=== PATIENT | female | born 1975 | race Caucasian/White ===

== ENCOUNTER 2022-07-17 13:58 | Inpatient (IN) | payer MEDICAID, SELFPAY ==
[2022-07-17 13:58] VITALS: BMI 28.2
[2022-07-17 14:00] VITALS: BP 142/97; PULSE 104; RESP 20; TEMP 36.9; O2SAT 98
--- NOTE | 2022-07-17 16:32 | PC.NURSE ---
BROTHER CALLED TO GIVE COLLABORATIVE INFO, STATES SHE HASN'T BEEN TAKING HER MEDICATIONS, REFUSING TOO, STATES SHE IS AGORAPHOBIC, SO IT HAS BEEN HARD TO GET HER INTO ANY OF HER DOCTOR APPOINTMENTS. LUIZ ALEMAN [phone]
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
[2022-07-17 21:49] VITALS: BP 118/81; PULSE 92; RESP 18; TEMP 36.9; O2SAT 97
[2022-07-17] MEDS: nicotine 4 mg lozenge MUCOUS MEM (22:35)
[2022-07-18] MEDS: nicotine 2 mg Gum BUCCAL ×3 (02:22→19:26)
[2022-07-18 06:00] VITALS: BP 118/79; PULSE 90; RESP 18; TEMP 36.7; O2SAT 98
[2022-07-18] MEDS: nicotine 21 mg Patch 1 PATCH TRANSDERMA (09:29)
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
[2022-07-18 14:00] VITALS: BP 130/81; PULSE 92; RESP 18; TEMP 36.7; O2SAT 98
[2022-07-18] MEDS: ARIPiprazole 10 mg Tablet PO (18:36)
[2022-07-18 20:30] VITALS: BP 137/80; PULSE 94; RESP 18; TEMP 36.7; O2SAT 98
[2022-07-19] MEDS: nicotine 2 mg Gum BUCCAL ×3 (02:42→21:41)
--- NOTE | 2022-07-19 05:28 | PC.NURSE ---
pt has been cooperative this shift, and requested a room change earlier as her roommate was yelling and pt was unable to get sleep. unit able to accommodate request.
[2022-07-19 06:00] VITALS: BP 138/83; PULSE 93; RESP 20; TEMP 36.6; O2SAT 97
[2022-07-19] MEDS: ARIPiprazole 10 mg Tablet PO (09:19)
[2022-07-19] MEDS: nicotine 21 mg Patch 1 PATCH TRANSDERMA (09:19)
[2022-07-19 14:00] VITALS: BP 123/82; PULSE 90; RESP 16; TEMP 36.8; O2SAT 99
--- NOTE | 2022-07-19 17:42 | W.PM.NPUPNS ---
Subjective NPU Subjective: Patient presented today reporting that she was feeling a little better. She feels like the Abilify has helped some. We discussed continuing with this medication and considering additional medication either here or after discharge. She is hoping that she does not have to stay too long but does identify that she understands why she is on a hold. We discussed that we would use the next day or so to determine whether there was going to be in need for a 21-day hold. Mental Status Exam MSE Comments: This is a an overweight versus obese white female in hospital scrubs with limited grooming and eye contact. No abnormal movements except for lessening psychomotor agitation. Cooperative with exam in mild distress. Speech was slightly increased rate and normal volume and less pressured. Mood described as a little better, affect is manic. Thought process, organized. Thought content: patient denies suicidal or homicidal ideation, no delusions reported or noted and denies any current auditory or visual hallucinations. Attention and concentration appear intact and memory appeared reliable but none were formally tested. She is alert and oriented times three. Insight and judgment are limited. Impulse control is impaired. Vitals/I&O/Wt Last Vital Signs Temp 98.3 F 07/19/22 14:00 Pulse 90 07/19/22 14:00 Resp 16 07/19/22 14:00 BP 123/82 07/19/22 14:00 Pulse Ox 99 07/19/22 14:00 O2 Del Method 07/19/22 14:00 Weight last 48 hrs Weight 79.379 kg A&P Assessment and plan (1) Bipolar disorder with psychotic features: (2) Parisa: Plan This is a 46 year old woman with a history of trauma, history of bipolar disorder, and genetic loading for mental health and addiction issues who presents reporting some success on Abilify in the past and an openness to restart medications at this time. 1. Continue current medications. Started Abilify 10 mg poq daily. 2. Encourage individual, group and milieu therapy 3. Continue q-15 minute check for safety Involuntary Hold Information 96 Hour Hold: 96 Hour Involuntary Admission: No Attestations NPU Medical Necessity Statement*: Inpatient hospitalization is medically necessary and the clinically appropriate intervention at this time. We will monitor medications and make changes as indicated. Likely length of stay is three to five days. Coding Level of Care Code Acute Code for [facility] Fwd Diagnoses Bipolar disorder with psychotic features F31.9 Parisa F30.9
[2022-07-19 20:57] VITALS: BP 132/83; PULSE 102; RESP 16; TEMP 36.9; O2SAT 96
[2022-07-20] MEDS: nicotine 2 mg Gum BUCCAL ×2 (02:56→21:01)
[2022-07-20 06:00] VITALS: BP 133/78; PULSE 90; RESP 20; TEMP 37; O2SAT 98
[2022-07-20] MEDS: nicotine 21 mg Patch 1 PATCH TRANSDERMA (09:23)
--- NOTE | 2022-07-20 09:28 | PC.NURSE ---
pt request to take medication abilify at HS instead of morning.
--- NOTE | 2022-07-20 13:21 | P.NPUPN_ITS ---
Subjective NPU Subjective: Patient presented today reporting that the Abilify is helping diminish her hyperkinetic internal experience. Staff reports and patient demonstrating continued intrusiveness and inappropriate boundaries consistent with parisa but clear that she is not wanting to stay beyond her 96-hour hold. Sathya eastman discussed the fact that we would evaluate her in the morning and make a decision at that time whether we would be submitting a request for a 21-day hold. We discussed wanting to talk to her about baseline and where her behavior patterns are currently. We switched the Abilify to bedtime as she reports it makes her sleepy but she was resistant to an increased in the dosing. Mental Status Exam MSE Comments: This is a an overweight versus obese white female in hospital scrubs with limited grooming and eye contact. No abnormal movements except for lessening psychomotor agitation. Cooperative with exam in mild distress. Speech was slightly increased rate and normal volume and less pressured. Mood described as a little better, affect is still manic. Thought process, organized. Thought content: patient denies suicidal or homicidal ideation, no delusions reported or noted and denies any current auditory or visual hallucinations. Attention and concentration appear intact and memory appeared reliable but none were formally tested. She is alert and oriented times three. Insight and judgment are limited. Impulse control is impaired. Vitals/I&O/Wt Last Vital Signs Temp 98.6 F 07/20/22 06:00 Pulse 90 07/20/22 06:00 Resp 20 H 07/20/22 06:00 BP 133/78 07/20/22 06:00 Pulse Ox 98 07/20/22 06:00 O2 Del Method 07/19/22 14:00 A&P Assessment and plan (1) Bipolar disorder with psychotic features: (2) Parisa: Plan This is a 46 year old woman with a history of trauma, history of bipolar disorder, and genetic loading for mental health and addiction issues who presents reporting some success on Abilify in the past and an openness to restart medications at this time. 1. Continue current medications. Started Abilify 10 mg poq daily. Change dosing to nightly. We will encourage increasing dose and likely switching to injection if possible. 2. Encourage individual, group and milieu therapy. 3. Continue q-15 minute check for safety. 4. Get collateral information from and will likely submit a 21-day hold request tomorrow. Involuntary Hold Information 96 Hour Hold: 96 Hour Involuntary Admission: No Attestations NPU Medical Necessity Statement*: Inpatient hospitalization is medically necessary and the clinically appropriate intervention at this time. We will monitor medications and make changes as indicated. Likely length of stay is three to five days. Coding Level of Care Code Acute Code for [facility] Diagnoses Bipolar disorder with psychotic features F31.9 Parisa F30.9
[2022-07-20 14:00] VITALS: BP 134/76; PULSE 102; RESP 18; TEMP 36.7; O2SAT 96
[2022-07-20] MEDS: ARIPiprazole 10 mg Tablet PO (21:01)
[2022-07-20 22:00] VITALS: BP 132/85; PULSE 99; RESP 15; TEMP 36.8; O2SAT 98
[2022-07-21 06:00] VITALS: RESP 17
--- NOTE | 2022-07-21 06:35 | PC.NURSE ---
nicorette gum given at bedtime, pt has slept most of the night. Woke up once for a snack and returned to bed.
[2022-07-21] MEDS: nicotine 4 mg lozenge MUCOUS MEM (08:02)
[2022-07-21] MEDS: nicotine 21 mg Patch 1 PATCH TRANSDERMA (09:13)
[2022-07-21 14:00] VITALS: BP 137/86; PULSE 97; RESP 18; TEMP 36.6; O2SAT 97
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
[2022-07-21] MEDS: ARIPiprazole Maintena 400 MG IM (18:34)
[2022-07-21] MEDS: ARIPiprazole 10 mg Tablet PO (20:50)
[2022-07-21] MEDS: nicotine 2 mg Gum BUCCAL (21:30)
[2022-07-21 22:00] VITALS: BP 128/84; PULSE 114; RESP 18; TEMP 36.6; O2SAT 99
[2022-07-22] MEDS: nicotine 2 mg Gum BUCCAL ×2 (03:56→21:24)
[2022-07-22 06:00] VITALS: BP 128/87; PULSE 101; RESP 16; TEMP 36.4; O2SAT 97
[2022-07-22] MEDS: cetirizine 10 mg Tablet PO (08:58)
[2022-07-22] MEDS: nicotine 21 mg Patch 1 PATCH TRANSDERMA (09:00)
--- NOTE | 2022-07-22 13:51 | P.NPUPN_ITS ---
Subjective NPU Subjective: Patient presented today reporting that she is feeling a bit better. She identifies that she feels she can go home sooner than we likely think and reports some of her behaviors are just her quirky style. We discussed making sure that she maintained the medication and noting her being less int rusive on the medication. She denied any issues with the injection site or any other issues. Mental Status Exam MSE Comments: This is a an overweight versus obese white female in hospital scrubs with limited grooming and eye contact. No abnormal movements except for lessening psychomotor agitation. Cooperative with exam in mild distress. Speech was slightly increased rate and normal volume and less pressured. Mood described as better, affect a little less manic. Thought process, organized. Thought c ontent: patient denies suicidal or homicidal ideation, no delusions reported or noted and denies any current auditory or visual hallucinations. Attention and concentration appear intact and memory appeared reliable but none were formally tested. She is alert and oriented times three. Insight and judgment are limited. Impulse control is impaired. Vitals/I&O/Wt Last Vital Signs Temp 97.6 F 07/22/22 06:00 Pulse 101 H 07/22/22 06:00 Resp 16 07/22/22 06:00 BP 128/87 07/22/22 06:00 Pulse Ox 97 07/22/22 06:00 O2 Del Method 07/22/22 06:00 A&P Assessment and plan (1) Bipolar disorder with psychotic features: (2) Parisa: Plan This is a 46 year old woman with a history of trauma, history of bipolar disorder, and genetic loading for mental health and addiction issues who presents reporting some success on Abilify in the past and an openness to restart medications at this time. 1. Continue current medications. Started Abilify 10 mg poq daily. Changed dosing to nightly. Initiated Abilify Maintena 400 mg IM q. monthly 07/21/2022. 2. Encourage individual, group and milieu therapy. 3. Continue q-15 minute check for safety. 4. Submitted 21-day hold paperwork. Involuntary Hold Information 96 Hour Hold: 96 Hour Involuntary Admission: No Attestations NPU Medical Necessity Statement*: Inpatient hospitalization is medically necessary and the clinically appropriate intervention at this time. We will monitor medications and make changes as indicated. Likely length of stay is 2-4 days. Coding Level of Care Code Acute Code for [facility] Diagnoses Bipolar disorder with psychotic features F31.9 Parisa F30.9
[2022-07-22 14:00] VITALS: BP 121/85; PULSE 116; RESP 16; TEMP 36.6; O2SAT 96
[2022-07-22] MEDS: ARIPiprazole 10 mg Tablet PO (21:04)
[2022-07-22 22:00] VITALS: BP 125/65; PULSE 102; RESP 15; TEMP 36.7; O2SAT 100
[2022-07-23] MEDS: nicotine 2 mg Gum BUCCAL ×2 (04:48→20:32)
[2022-07-23 06:00] VITALS: BP 121/67; PULSE 107; RESP 16; TEMP 36.7; O2SAT 97
[2022-07-23] MEDS: cetirizine 10 mg Tablet PO (09:01)
[2022-07-23] MEDS: nicotine 21 mg Patch 1 PATCH TRANSDERMA (09:20)
--- NOTE | 2022-07-23 11:51 | P.NPUPN_ITS ---
Subjective NPU Subjective: Patient presented today continuing to show limited insight into her situation. She was very focused on the possibility of seeing her children and pets and we discussed the critical need for her to be stable so that she can stay home. She reports that she will follow-up with discharge appointments and remain on the medication. She is eating and sleeping fine. Mental Status Exam MSE Comments: This is a an overweight versus obese white female in hospital scrubs with limited grooming and eye contact. No abnormal movements except for lessening psychomotor agitation. Cooperative with exam in mild distress. Speech was slightly increased rate and normal volume and less pressured. Mood described as better, affect a little less manic. Thought process, organized. Thought content: patient denies suicidal or homicidal ideation, no delusions reported or noted and denies any current auditory or visual hallucinations. Attention and concentration appear intact and memory appeared reliable but none were formally tested. She is alert and oriented times three. Insight and judgment are limited. Impulse control is impaired. Vitals/I&O/Wt Last Vital Signs Temp 98.1 F 07/23/22 06:00 Pulse 107 H 07/23/22 06:00 Resp 16 07/23/22 06:00 BP 121/67 07/23/22 06:00 Pulse Ox 97 07/23/22 06:00 O2 Del Method 07/23/22 06:00 A&P Assessment and plan (1) Bipolar disorder with psychotic features: (2) Parisa: Plan This is a 46 year old woman with a history of trauma, history of bipolar disorder, and genetic loading for mental health and addiction issues who presents reporting some success on Abilify in the past and an openness to restart medications at this time. 1. Continue current medications. Started Abilify 10 mg poq daily. Changed dosing to nightly. Initiated Abilify Maintena 400 mg IM q. monthly 07/21/2022. 2. Encourage individual, group and milieu therapy. 3. Continue q-15 minute check for safety. 4. Submitted 21-day hold paperwork. Involuntary Hold Information 96 Hour Hold: 96 Hour Involuntary Admission: No Attestations NPU Medical Necessity Statement*: Inpatient hospitalization is medically necessary and the clinically appropriate intervention at this time. We will monitor me dications and make changes as indicated. Likely length of stay is 2-4 days. Coding Level of Care Code Acute Code for [facility] Diagnoses Bipolar disorder with psychotic features F31.9 Parisa F30.9
[2022-07-23] MEDS: benzocaine 20% 7 gm 1 APPLIC MUCOUS MEM (13:54)
[2022-07-23 14:00] VITALS: BP 135/76; PULSE 102; RESP 20; TEMP 36.6; O2SAT 95
--- NOTE | 2022-07-23 16:18 | NPU.GN ---
[facility] Topic:Art therapy General Mood of Group- good, patient participated in coloring and interacting with staff and other patients
[2022-07-23 19:52] VITALS: BP 126/70; PULSE 110; RESP 18; TEMP 37.3; O2SAT 96
[2022-07-23] MEDS: acetaminophen 325 mg Tablet 650 MG PO (20:31)
[2022-07-23] MEDS: ARIPiprazole 10 mg Tablet PO (20:47)
[2022-07-23 22:00] VITALS: BP 126/70; PULSE 110; TEMP 37.3
[2022-07-24] MEDS: nicotine 2 mg Gum BUCCAL ×2 (05:48→08:48)
[2022-07-24 06:00] VITALS: BP 118/82; PULSE 86; RESP 16; TEMP 36.8; O2SAT 98
[2022-07-24] MEDS: cetirizine 10 mg Tablet PO (08:48)
--- NOTE | 2022-07-24 09:42 | W.PM.NPUPNS ---
Subjective NPU Subjective: Presented today reporting that she is fine. She reports that some of the oddity that we see is a reflection of her just being in person we discussed the possibility of cluster a personality disorder being a factor in addition to her manic presentation. We agreed we would work with the treatment team tomorrow and work with her to see if we are near baseline and the possibility of discharge at the beginning of this week. Mental Status Exam MSE Comments: This is a an overweight versus obese white female in hospital scrubs with limited grooming and eye contact. No abnormal movements except for lessening psychomotor agitation. Cooperative with exam in mild distress. Speech was slightly increased rate and normal volume and less pressured. Mood described as better, affect is congruent, but odd. Thought process, organized. Thought content: patient denies suicidal or homicidal ideation, no delusions reported or noted and denies any current auditory or visual hallucinations. Attention and concentration appear intact and memory appeared reliable but none were formally tested. She is alert and oriented times three. Insight and judgment are limited. Impulse control is limited. Vitals/I&O/Wt Last Vital Signs Temp 98.2 F 07/24/22 06:00 Pulse 86 07/24/22 06:00 Resp 16 07/24/22 06:00 BP 118/82 07/24/22 06:00 Pulse Ox 98 07/24/22 06:00 O2 Del Method 07/24/22 06:00 Weight last 48 hrs Weight 89.018 kg Weight 89.018 kg A&P Assessment and plan (1) Bipolar disorder with psychotic features: (2) Parisa: Plan This is a 46 year old woman with a history of trauma, history of bipolar disorder, and genetic loading for mental health and addiction issues who presents reporting some success on Abilify in the past and an openness to restart medications at this time. 1. Continue current medications. Started Abilify 10 mg poq daily. Changed dosing to nightly. Initiated Abilify Maintena 400 mg IM q. monthly 07/21/2022. 2. Encourage individual, group and milieu therapy. 3. Continue q-15 minute check for safety. 4. 21-day hold hearing 07/27/22. Involuntary Hold Information 96 Hour Hold: 96 Hour Involuntary Admission: No Attestations NPU Medical Necessity Statement*: Inpatient hospitalization is medically necessary and the clinically appropriate intervention at this time. We will monitor medications and make changes as indicated. Likely length of stay is 1-3 days. Coding Level of Care Code Acute Code for g Fwd Diagnoses Bipolar disorder with psychotic features F31.9 Parisa F30.9
[2022-07-24] MEDS: nicotine 21 mg Patch 1 PATCH TRANSDERMA (11:02)
[2022-07-24 14:00] VITALS: BP 134/79; PULSE 97; RESP 18; TEMP 36.9; O2SAT 98
[2022-07-24 19:57] VITALS: BP 141/76; PULSE 99; RESP 18; TEMP 36.9; O2SAT 100
[2022-07-24] MEDS: ARIPiprazole 10 mg Tablet PO (21:03)
[2022-07-24] MEDS: nicotine 4 mg lozenge MUCOUS MEM (22:46)
[2022-07-25 06:00] VITALS: BP 133/91; PULSE 98; RESP 18; TEMP 36.6; O2SAT 97
[2022-07-25] MEDS: nicotine 2 mg Gum BUCCAL (08:06)
[2022-07-25] MEDS: cetirizine 10 mg Tablet PO (08:06)
[2022-07-25] MEDS: nicotine 21 mg Patch 1 PATCH TRANSDERMA (10:59)
[2022-07-25 14:35] VITALS: BP 133/91; PULSE 98; RESP 18; TEMP 36.6; O2SAT 97
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
== END 2022-07-25 15:27 | disposition home or self-care (01) | DRG 885 ==
PROVIDERS: Admitting Provider Psychiatry & Neurology Psychiatry; Visit Provider Psychiatry & Neurology Psychiatry
DX: F31.2 Bipolar disorder, current episode manic severe with psychotic features (principal); Z63.0 Problems in relationship with spouse or partner; F17.210 Nicotine dependence, cigarettes, uncomplicated; Z81.1 Family history of alcohol abuse and dependence; F90.9 Attention-deficit hyperactivity disorder, unspecified type; Z88.1 Allergy status to other antibiotic agents; Z88.0 Allergy status to penicillin
CPT/HCPCS: 96372; 97150; 97165